=== PATIENT | female | born 1985 | race Caucasian/White ===

== ENCOUNTER 2018-04-19 19:49 | Emergency (ER) | payer MEDICAID, OTHER ==
[2018-04-19] MEDS: HYDROCODONE/APAP (10/325) TAB PO (21:19)
[2018-04-19] MEDS: ONDANSETRON (ODT) 4 MG TAB ODT (21:19)
[2018-04-19] MEDS: KETOROLAC 30 MG INJ IM (23:19)
== END 2018-04-19 23:37 | disposition home or self-care (01) ==
LOC: E/R 23:37
DX: S32.2XXA Fracture of coccyx, initial encounter for closed fracture (principal); W01.0XXA Fall on same level from slipping, tripping and stumbling without subsequent striking against object, initial encounter; Y92.9 Unspecified place or not applicable
CPT/HCPCS: 72220; 84703; 96372; 99284-25